=== PATIENT | male | born 1970 | race Caucasian/White ===

== ENCOUNTER 2016-04-25 19:15 | Emergency (ER) | payer BC ==
[2016-04-25 20:09] VITALS: BP 138/82
--- NOTE | 2016-04-25 21:12 | RAD ---
Indication: Cough. 2 views of the chest including dual energy PA views demonstrate no mediastinal shift. Heart is of normal size and configuration. Lungs are clear. No changes noted since May 17, 2014. IMPRESSION: No active cardiopulmonary disease is noted.
--- NOTE | 2016-04-25 22:51 | UC ---
Respiratory Complaint HPI - HPI Summary HPI Summary: FIVE DAYS AGO HAD BEEN IN [facility] WITHOUT A MASK. SINCE TIME OF EXPOSURE HAS BEEN COUGHING AND FEELING WHEEZING WITH EXERTION. NO FEVER - History of Current Complaint Chief Complaint: UCRespiratory Stated Complaint: RESP COMPLAINT Time Seen by Provider: 04/25/16 20:13 Hx Obtained From: Patient Onset/Duration: Gradual Onset, Lasting Days, Still Present Timing: Intermittent Episodes Severity Initially: Mild Severity Currently: Mild Pain Intensity: 0 Pain Scale Used: 0-10 Numeric Character: Cough: Nonproductive Aggravating Factors: Allergens, Exertion, Deep Breaths Alleviating Factors: Spontaneous Resolution, Nothing Associated Signs And Symptoms: Positive: Wheezing, Hoarseness - Risk Factors Pulmonary Embolism Risk Factors: Negative Cardiac Risk Factors: Negative Pseudomonas Risk Factors: Negative Tuberculosis Risk Factors: Negative - Allergies/Home Medications Allergies/Adverse Reactions: Allergies Allergy/AdvReac Type Severity Reaction Status Date / Time Amoxicillin Allergy Rash Verified 04/25/16 20:09 Erythromycin Allergy Rash Verified 04/25/16 20:09 Home Medications: Home Medications Ug[place]an Ginseng (Panax Quinqu [Ginseng (Ugandan)] 1 pow XX DAILY 04/25/16 [ History Confirmed 04/25/16] PMH/Surg Hx/FS Hx/Imm Hx Previously Healthy: Yes Endocrine History Of: Denies: Diabetes, Thyroid Disease Cardiovascular History Of: Denies: Cardiac Disorders, Hypertension Respiratory History Of: Denies: COPD, Asthma GI/ History Of: Denies: Ulcer - Surgical History Surgical History: Yes Surgery Procedure, Year, and Place: appy and rt ankle surgery - Family History Known Family History: Negative: Cardiac Disease, Respiratory Disease - Social History Occupation: Employed Full-time Lives: With Family Alcohol Use: Daily Substance Use Type: None Smoking Status (MU): Never Smoked Tobacco - Immunization History Most Recent Influenza Vaccination: fall Most Recent Tetanus Shot: less then 3 yrs Review of Systems Constitutional: Negative Skin: Negative Eyes: Negative ENT: Negative Respiratory: Cough Cardiovascular: Negative Gastrointestinal: Negative Genitourinary: Negative Motor: Negative Neurovascular: Negative Musculoskeletal: Negative Neurological: Negative Psychological: Negative All Other Systems Reviewed And Are Negative: Yes Physical Exam Triage Information Reviewed: Yes Appearance: Well-Appearing, No Pain Distress, Well-Nourished Vital Signs: Initial Vital Signs Temp 98 F 04/25/16 20:03 Pulse 71 04/25/16 20:03 Resp 18 04/25/16 20:03 BP 138/82 04/25/16 20:03 Pulse Ox 100 04/25/16 20:03 Vital Signs Reviewed: Yes Eye Exam: Normal Eyes: Positive: Conjunctiva Clear ENT Exam: Normal ENT: Positive: Normal ENT inspection, Hearing grossly normal, Pharynx normal, TMs normal Dental Exam: Normal Neck exam: Normal Neck: Positive: Supple, Nontender, No Lymphadenopathy Respiratory Exam: Normal Respiratory: Positive: Chest non-tender, Lungs clear, Normal breath sounds, No respiratory distress, No accessory muscle use Cardiovascular Exam: Normal Cardiovascular: Positive: RRR, No Murmur, Pulses Normal, Brisk Capillary Refill Abdominal Exam: Normal Musculoskeletal Exam: Normal Neurological Exam: Normal Psychological Exam: Normal Psychological: Positive: Normal Response To Family Skin Exam: Normal UC Diagnostic Evaluation - Laboratory O2 Sat by Pulse Oximetry: 100 - Radiology Xray Interpretation: No Acute Changes Radiology Interpretation Completed By: Radiologist Respiratory Course/Dx - Differential Dx/Diagnosis Differential Diagnosis/HQI/PQRI: Airway Obstruction, Foreign Body, Aspiration, Asthma, Bronchitis, Sinusitis, Other - PNEUMONIA Provider Diagnoses: FINE PARTICULATE/DUST INHALATION INJURY. BRONCHITIS Discharge - Discharge Plan Condition: Stable Disposition: HOME Prescriptions: Albuterol HFA INHALER* [Ventolin HFA Inhaler*] 1 puff INH Q6H PRN #1 mdi PRN Reason: Wheezing Patient Education Materials: Smoke Inhalation (ED) Referrals: [facility] [place] [Outside] No Primary Care Phys,NOPCP [Primary Care Provider] -
== END 2016-04-25 22:11 | disposition home or self-care (01) ==
LOC: UCEAST 19:15
DX: J40 Bronchitis, not specified as acute or chronic (principal); Z88.1 Allergy status to other antibiotic agents; Z88.0 Allergy status to penicillin
CPT/HCPCS: 71020; 99212; G0463

== ENCOUNTER 2018-04-17 09:41 | Emergency (ER) | payer BC ==
[2018-04-17 09:54] VITALS: BP 139/94
[2018-04-17 11:00] LABS: Influenza A Molecular POSITIVE (Negative)
--- NOTE | 2018-04-17 11:18 | UC ---
FLU HPI - HPI Summary HPI Summary: 47 y/o male presents to the urgent care c/o fever, TALAVERA, body aches, sore throat, a burning dry cough for the past 4 days. Pt reports all his family Dx with the flu Pt has been taking advil PO to alleviate symptoms. Pt denies SOB, chest pain, abdominal pain, N/V/D. Pt request the Tamiflu. - History of Current Complaint Chief Complaint: UCGeneralIllness Stated Complaint: POSS FLU Time Seen by Provider: 04/17/18 11:16 Hx Obtained From: Patient Onset/Duration: Gradual Onset, Lasting Days - 5 days, Still Present, Worse Since - 2 days Severity Currently: Mild Severity Initially: Mild Pain Intensity: 3 Pain Scale Used: 0-10 Numeric Associated Signs & Symptoms: Positive: Fever - low grade fever at home, Myalgia , Cough - dry, Sore Throat - mild, Nasal Congestion - clear, Headache. Negative : Vomiting, Diarrhea - Risk Factors Influenza Risk Factors: Negative - Allergy/Home Medications Allergies/Adverse Reactions: Allergies Allergy/AdvReac Type Severity Reaction Status Date / Time erythromycin base Allergy Rash Verified 04/17/18 09:56 Penicillins Allergy Rash Verified 04/17/18 09:56 PMH/Surg Hx/FS Hx/Imm Hx Previously Healthy: Yes - Pt denies PMHX - Surgical History Surgical History: Yes Surgery Procedure, Year, and Place: appy and rt ankle surgery - Family History Known Family History: Positive: Cardiac Disease, Diabetes Negative: Respiratory Disease - Social History Occupation: Employed Full-time Lives: With Family Alcohol Use: Daily Substance Use Type: None Smoking Status (MU): Never Smoked Tobacco - Immunization History Most Recent Influenza Vaccination: fall Most Recent Tetanus Shot: less then 3 yrs Review of Systems All Other Systems Reviewed And Are Negative: Yes Constitutional: Positive: Fever - low grade fever at home, Chills, Fatigue, Other - body aches Skin: Positive: Negative Eyes: Positive: Negative ENT: Positive: Sore Throat - mild, Nasal Discharge - clear, Sinus Congestion Respiratory: Positive: Cough - dry Cardiovascular: Positive: Negative Gastrointestinal: Positive: Negative Genitourinary: Positive: Negative Motor: Positive: Negative Neurovascular: Positive: Negative Musculoskeletal: Positive: Myalgia Neurological: Positive: Headache Psychological: Positive: Negative Is Patient Immunocompromised?: No Physical Exam - Summary Physical Exam Summary: VITAL SIGNS: Reviewed. GENERAL: Patient is a well developed and nourished male who is sitting comfortable in the examining table. Patient is not in any acute respiratory distress. HEAD AND FACE: No signs of trauma. No ecchymosis, hematomas or skull depressions. No sinus tenderness. EYES: PERRLA, EOMI x 2, No injected conjunctiva, no nystagmus. No photophobia. EARS: Hearing grossly intact. Ear canals and tympanic membranes are within normal limits. Nose: edematous and erythematous nasal mucosa w/ clear nasal discharge. MOUTH: Positive no erythema, no tonsillar enlargement. Uvula in midline. NECK: Supple, trachea is midline, Positive anterior cervical lymphadenopathy, no JVD, no carotid bruit, no c-spine tenderness, neck with full ROM. No meningeal signs, no Kernig's or brudzinskis signs. CHEST: Symmetric, no tenderness at palpation LUNGS: Clear to auscultation bilaterally. No wheezing or crackles. CVS: Regular rate and rhythm, S1 and S2 present, no murmurs or gallops appreciated. ABDOMEN: Soft, non-tender. No signs of distention. No rebound no guarding, and no masses palpated. Bowel sounds are normal. EXTREMITIES: FROM in all major joints, no edema, no cyanosis or clubbing. NEURO: Alert and oriented x 3. No acute neurological deficits. Speech is normal and follows commands. SKIN: Dry and warm Triage Information Reviewed: Yes Vital Signs: Initial Vital Signs Temp 99.2 F 04/17/18 09:51 Pulse 73 04/17/18 09:51 Resp 18 04/17/18 09:51 BP 139/94 04/17/18 09:51 Pulse Ox 99 04/17/18 09:51 Flu Course/Dx - Course Course Of Treatment: 47 y/o male presents to the urgent care c/o fever, TALAVERA, body aches, sore throat, a burning dry cough for the past 4 days. Pt reports all his family Dx with the flu. Pt has been taking advil PO to alleviate symptoms. Pt denies SOB, chest pain, abdominal pain, N/V/D. Pt request the Tamiflu. Hx obtained.Pt with URI on examination. Influenza A&B ordered: result: Influenza A positive.Pt Rx Tamiflu and ibuprofen PO to alleviates symptoms. Advised on hand washing and wear a mask to avoid spreading. Pt advised to rest, increase fluid intake, eat well and avoid strenuous exercise. Pt's BP is elevated today advised to decrease salt in diet, monitor BP and f/u with PCP for further management.If symptoms do not improve or worsen advised to return to the urgent care or f/u with her PCP for further evaluation and treatment. Pt understood and agreed - Differential Dx/Diagnosis Differential Diagnosis/HQI/PQRI: Bronchitis, Influenza, Pneumonia, Upper Respiratory Infection Provider Diagnosis: Influenza A, Elevated BP without diagnosis of hypertension Discharge - Sign-Out/Discharge Documenting (check all that apply): Patient Departure - D/C home All imaging exams completed and their final reports reviewed: No Studies - Discharge Plan Condition: Stable Disposition: HOME Prescriptions: Oseltamivir CAP* [Tamiflu CAP*] 75 mg PO BID #10 cap Patient Education Materials: Influenza (ED), Low-Sodium Diet (ED) Referrals: [facility] [place] [facility] [Outside] - 3 Days Additional Instructions: 1- Please take the full course of the antiviral to avoid resistance. Encourage hand washing and wear a mask to avoid spreading. 2-Please take Tylenol PO q6-8hrs prn as instructed after meals to alleviate fever, and sore throat. Increase fluid intake, eat well, rest and avoid strenuous exercise 3-If symptoms do not improve or worsen please return to the urgent care or f/u with your PCP in 3 days for further evaluation and treatment. 4-Your BP is elevated today. please decrease salt in your diet, monitor BP and if it continues to be elevated please f/u with your PCP for further management. - Billing Disposition and Condition Condition: STABLE Disposition: Home
== END 2018-04-17 11:36 | disposition home or self-care (01) ==
LOC: UCEAST 09:41
DX: J10.1 Influenza due to other identified influenza virus with other respiratory manifestations (principal); R03.0 Elevated blood-pressure reading, without diagnosis of hypertension; Z88.1 Allergy status to other antibiotic agents; Z88.0 Allergy status to penicillin
CPT/HCPCS: 99212; G0463